=== PATIENT | female | born 1960 | race Caucasian/White ===

== ENCOUNTER 2018-03-25 19:11 | Emergency (ER) | payer MEDICAID ==
[2018-03-25] MEDS ORDERED: HYDROCODONE/APAP 7.5/325MG TABLET PO ONE (19:31)
--- NOTE | 2018-03-25 19:43 | Emergency Department Record ---
History of Present Illness - General Chief Complaint: Fall Injury Stated Complaint: FALL INJURY Time Seen by Provider: 03/25/18 19:31 Source: Patient Mode of Arrival: Ambulatory Limitations: No limitations - History of Present Illness Initial Comments: 58 yo female presents to ED for evaluation of pain and swelling to the right forearm following a fall injury that occurred yesterday. Patient reports that she was standing on the arm of her couch to kill a spider when she slipped injuring her left forearm. Patient denies other injury on examination. Patient denies headache symptoms, neck pain, numbness, tingling, or weakness symptoms. Patient does report a history of IDDM, CAD s/p stenting, does take Plavix daily. Patient has been taking [place] for her symptoms. 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 Place Fall Occurred: Home Loss of Consciousness: None Prolonged Down Time?: No Symptoms Prior to Fall: None Location - Extremities: Left: Forearm Severity: Severe Severity scale (1-10): 9 Quality: Aching Context: Tripped/slipped - [place] Coma Scale Eye Response: (4) Open spontaneously Motor Response: (6) Obeys commands Verbal Response: (5) Oriented Margy Total: 15 - Related Data Home Medications Medication Instructions Recorded Confirmed Last Taken Insulin Glargine,Hum.rec.anlog 18 unit SQ QHS 03/25/18 03/25/18 Unknown [Basaglar Kwikpen U-100] Insulin Lispro [Admelog] 30 unit SC WMEALS 03/25/18 03/25/18 Unknown Allergies Allergy/AdvReac Type Severity Reaction Status Date / Time morphine Allergy ITCHING Verified 01/24/16 21:57 Travel Screening - Travel/Exposure Within Last 30 Days Have you traveled within the last 30 days?: No Review of Systems Constitutional: Denies: Chills, Fever, Malaise, Night sweats Eyes: Denies: Eye discharge, Eye pain, Photophobia ENT: Denies: Congestion, Ear pain, Epistaxis Respiratory: Denies: Cough, Dyspnea Cardiovascular: Denies: Chest pain, Dyspnea on exertion Endocrine: Denies: Fatigue, Heat or cold intolerance Gastrointestinal: Denies: Abdominal pain, Nausea, Vomiting Genitourinary: Denies: Incontinence, Retention Musculoskeletal: Reports: Arthralgia, Joint swelling. Denies: Back pain, Gout Skin: Denies: Bruising, Change in color Neurological: Denies: Abnormal gait, Confusion, Headache, Seizure Psychiatric: Denies: Anxiety Hematological/Lymphatic: Denies: Anemia, Blood Clots Past Medical History - SOCIAL HISTORY Smoking Status: Current every day smoker Alcohol Use: None Drug Use: None - RESPIRATORY Hx Respiratory Disorders: No - CARDIOVASCULAR Hx Cardio Disorders: Yes Hx Heart Attack: Yes Hx Hypertension: Yes Comment:: CAD - NEURO Hx Neuro Disorders: Yes Hx Dizziness: Yes - GI Hx GI Disorders: Yes Comment:: gastroparesis - Hx Genitourinary Disorders: No - ENDOCRINE Hx Endocrine Disorders: Yes Hx Diabetes: Yes (DM2) - MUSCULOSKELETAL Hx Musculoskeletal Disorders: Yes Hx Fibromyalgia: Yes Comment:: DDD - PSYCH Hx Psych Problems: Yes Hx Anxiety: Yes Hx Depression: Yes - HEMATOLOGY/ONCOLOGY Hx Hematology/Oncology Disorders: No Family Medical History Any Significant Family History?: Yes Hx Heart Disease: Mother Hx Resp Disorders: Father Physical Exam - General General Appearance: Alert, Oriented x3, Cooperative, Moderate distress Limitations: No limitations - Head Head exam: Atraumatic, Normocephalic, Normal inspection Head exam detail: negative: Abrasion, Contusion, Tracy's sign, General tenderness, Hematoma, Laceration - Eye Eye exam: Normal appearance. negative: Conjunctival injection, Periorbital swelling, Periorbital tenderness, Scleral icterus - ENT Ear exam: negative: Auricular hematoma, Auricular trauma Nasal Exam: negative: Active bleeding, Discharge, Dried blood, Foreign body Mouth exam: negative: Drooling, Laceration, Muffled voice, Tongue elevation - Neck Neck exam: Normal inspection. negative: Meningismus, Tenderness - Respiratory Respiratory exam: Normal lung sounds bilaterally. negative: Rales, Respiratory distress, Rhonchi, Stridor - Cardiovascular Cardiovascular Exam: Regular rate, Normal rhythm, Normal heart sounds Peripheral Pulses: 3+: Radial (L) - GI/Abdominal GI/Abdominal exam: Soft. negative: Rebound, Rigid, Tenderness - Rectal Rectal exam: Deferred - exam: Deferred - Extremities Extremities exam: Tenderness (STS and erythema to the dorsum of the left wrist, strong distal radial pulse, no pain with ROM of the elbow/shoulder.). negative : Calf tenderness, Pedal edema - Back Back exam: Denies: CVA tenderness (R), CVA tenderness (L) - Neurological Neurological exam: Alert, Normal gait, Oriented X3 - Psychiatric Psychiatric exam: Normal affect, Normal mood - Skin Skin exam: Normal color. negative: Abrasion Type of lesion: negative: abrasion Course Vital Signs 03/25/18 19:13 Temperature 99.8 F H Pulse Rate 72 Respiratory 20 Rate Blood Pressure 117/88 Pulse Ox 98 - Reevaluation(s) Reevaluation #1: 03/25/18 19:58 Left wrist: Non-displaced distal radius fracture Distal ulnar styloid fracture Patient was updated on her radiograph results, will place on volar splint with orthopedic follow-up. Consult placed for Dr. Troy. Patient has [place] 10 mg that she takes as needed for her chronic pain symptoms. Disposition Disposition: Discharge Clinical Impression: Wrist fracture, left Qualifiers: Encounter type: initial encounter Fracture type: closed Qualified Code(s): S62.102A - Fracture of unspecified carpal bone, left wrist, initial encounter for closed fracture Disposition: Home, Self-Care Condition: (2) Stable Instructions: Wrist Fracture in Children (ED) Additional Instructions: Return to ED if your symptoms worsen or if you have any concerns. Follow-up with Dr. Troy in 5-7 days as directed. Referrals: GAVINO TROY [DOCTOR OF OSTEOPATH] - [facility] Special[facility] [Provider Group] Forms: Patient Portal Access Time of Disposition: 20:01 Quality - Quality Measures Quality Measures: N/A - Blood Pressure Screening Does Patient Have Any of the Following: No Blood Pressure Classification: Pre-Hypertensive BP Reading Systolic Measurement: 117 Diastolic Measurement: 88 Screening for High Blood Pressure: < Pre-Hypertensive BP, F/U Documented > [ [id number]] Pre-Hypertensive Follow-up Interventions: Referral to alternative/primary care provider.
--- NOTE | 2018-03-26 23:09 | RADIOLOGY REPORT ---
EXAM: WRIST, LEFT 3 VIEWS HISTORY: PAIN. TECHNIQUE: Four views of the left wrist were performed. FINDINGS: Nondisplaced fracture deformity of the distal left radius. Small avulsion fracture deformity of ulnar styloid. IMPRESSION: NONDISPLACED FRACTURE DEFORMITY OF THE DISTAL LEFT RADIUS. SMALL AVULSION FRACTURE DEFORMITY OF THE ULNAR STYLOID. JOB NUMBER: [id number] MTDD
== END 2018-03-25 20:55 | disposition home or self-care (01) ==
LOC: ER 19:11
DX: S52.615A Nondisplaced fracture of left ulna styloid process, initial encounter for closed fracture (principal); S52.502A Unspecified fracture of the lower end of left radius, initial encounter for closed fracture; E11.9 Type 2 diabetes mellitus without complications; I10 Essential (primary) hypertension; I25.10 Atherosclerotic heart disease of native coronary artery without angina pectoris; Z95.5 Presence of coronary angioplasty implant and graft; F17.210 Nicotine dependence, cigarettes, uncomplicated; W08.XXXA Fall from other furniture, initial encounter; Y92.009 Unspecified place in unspecified non-institutional (private) residence as the place of occurrence of the external cause
CPT/HCPCS: 99283